=== PATIENT | male | born 1980 | race Caucasian/White ===

== ENCOUNTER 2017-09-28 10:15 | Emergency (ER) | payer SELFPAY ==
[~2017-09-28] VITALS: Ht 182.9 cm; Wt 86.6 kg
[~2017-09-28 10:15] MED LIST: PROM25SU8 PO; Z.0.NO CURRENT MEDS
[2017-09-28 10:18] VITALS: BP 132/88; PULSE 102; RESP 18; TEMP 98.2; O2SAT 94
[2017-09-28] MEDS ORDERED: SODIUM CHLORIDE 0.9% FLUSH 10 ML FLUSH IVF PRN (10:30)
[2017-09-28 10:47] LABS: BILIRUBIN, URINE NEG (NEG); BLOOD, URINE TRACE (NEG); GLUCOSE,URINE NEG (NEG); KETONE, URINE NEG (NEG); NITRITE,URINE NEG (NEG); URINE COLOR YELLOW (YELLW/STRAW); URINE LEUKOCYTE ESTERASE SMALL (NEG)
[2017-09-28 10:51] LABS: RBC, URINE 0-3 /hpf (0-3); SQUAMOUS EPITHELIAL CELL URINE 0-5 /hpf (0-5); WHITE BLOOD CELL CLUMPS FEW
[2017-09-28] MEDS ORDERED: DOXY100C PO (11:18)
--- NOTE | 2017-09-28 11:18 | PD ---
HPI Chief Complaint: Complaint Time Seen by Provider: 10:31 Travel History International Travel<30 days: No Contact w/Intl Traveler<30days: No Traveled to known affect area: No History of Present Illness HPI 37-year-old male here with penile discharge, dysuria, mild testicular pain for the last month. He believes he has an STD. No abdominal pain, flank pain, nausea or vomiting. No fever chills. He reports mild bilateral testicular discomfort/aching over the last month. he reports he had unprotected intercourse approximately 6 weeks ago and developed symptoms 2 weeks after. He has been self-medicating with AZO at home with minimal relief. He reports clear yellow discharge. No testicular swelling. PFSH Past Medical History Asthma: Yes Diminished Hearing: No Respiratory: Yes (ASTHMA) Influenza Vaccination: No Past Surgical History Abdominal Surgery: Yes (HERNIA AT AGE 7) Other Surgery: Yes (right hand surgery, right foot) Social History Alcohol Use: Yes (BEER DAILY 4-6) Tobacco Use: Yes (1/2 PPD) Substance Use: Yes ([employer] OCC) Allergies-Medications (Allergen,Severity, Reaction): Coded Allergies: penicillin G (Unverified Allergy, Severe, SWEATS, VOMITING, FEVER, 09/28/17 ) Sulfa (Sulfonamide Antibiotics) (Unverified Allergy, Unknown, 09/28/17) acetaminophen (Unverified Allergy, Unknown, 09/28/17) Reported Meds & Prescriptions Reported Meds & Active Scripts Active Doxycycline Hyclate 100 Mg Cap 100 Mg PO BID Review of Systems Except as stated in HPI: all other systems reviewed are Neg General / Constitutional: No: Fever Eyes: No: Visual changes HENT: No: Headaches Cardiovascular: No: Chest Pain or Discomfort Respiratory: No: Shortness of Breath Gastrointestinal: No: Abdominal Pain Genitourinary: Positive: Discharge Musculoskeletal: No: Pain Skin: No Rash Physical Exam Narrative GENERAL: Alert and well-appearing 37-year-old male SKIN: Warm and dry. HEAD: Normocephalic. EYES: No injection or drainage. NECK: Supple CARDIOVASCULAR: Regular rate and rhythm RESPIRATORY: Breath sounds equal bilaterally. No accessory muscle use. GASTROINTESTINAL: Abdomen soft, non-tender, nondistended. GENITOURINARY: Circumcised. Testes descended bilaterally without evidence of rotation. Testes are nontender. No swelling. No lesions or erythema. No urethral discharge. MUSCULOSKELETAL: No cyanosis, or edema. BACK: Nontender without obvious deformity. No CVA tenderness. Data Data Last Documented VS Vital Signs Date Time Temp Pulse Resp B/P (MAP) Pulse Ox O2 Delivery O2 Flow Rate FiO2 09/28/17 10:28 16 09/28/17 10:18 98.2 102 132/88 (103) 94 Orders Orders Urinalysis - C+S If Indicated (09/28/17 10:30) Gc And Chlamydia Pcr (09/28/17 10:30) Sodium Chloride 0.9% Flush (Ns Flush) (09/28/17 10:30) Urine Culture (09/28/17 10:34) Azithromycin (Zithromax) (09/28/17 11:30) Ed Discharge Order (09/28/17 11:19) Labs Laboratory Tests Test 09/28/17 10:34 Urine Collection Type CLEAN CATCH Urine Color YELLOW Urine Turbidity CLEAR Urine pH 6.0 Urine Specific [place] LESS/EQUAL 1.005 Urine Protein 30 mg/dL Urine Glucose (UA) NEG mg/dL Urine Ketones NEG mg/dL Urine Occult Blood TRACE Urine Nitrite NEG Urine Bilirubin NEG Urine Urobilinogen 0.2 MG/DL Urine Leukocyte Esterase SMALL Urine RBC 0-3 /hpf Urine WBC 20-24 /hpf Urine WBC Clumps FEW Urine Squamous Epithelial Cells 0-5 /hpf Microscopic Urinalysis Comment CULTURE INDICATED MDM Medical Decision Making Medical Screen Exam Complete: Yes Emergency Medical Condition: Yes Differential Diagnosis Urethritis, STI, epididymitis, orchitis, torsion unlikely Narrative Course 37-year-old male here with penile discharge for 1 month. Concern of STD. Testes are distended bilaterally nontender. UA suggestive of infection. I suspect this is STD. GC chlamydia pending. He will be treated empirically for GC chlamydia. Patient is allergic to penicillin. He is given azithromycin 2 g orally in ED. Discharged home with doxycycline Diagnosis Primary Impression: Penile discharge Referrals: [facility] Additional Instructions: Take the antibiotics as directed. All partners must be treated. Return to emergency department if he develop new or worsening symptoms Scripts Doxycycline Hyclate (Doxycycline Hyclate) 100 Mg Cap 100 MG PO BID for Infection, #20 CAP 0 Refills Prov: Brianna Murillo 09/28/17 Disposition: 01 DISCHARGE HOME Condition: Stable Brianna Murillo September 28, 2017 11:18
[2017-09-28] MEDS ORDERED: AZITHROMYCIN 250 MG TAB PO ONE (11:30)
[2017-09-28 11:33] VITALS: BP 117/75
== END 2017-09-28 11:37 | disposition home or self-care (01) ==
LOC: PHED 10:15
DX: R36.9 Urethral discharge, unspecified (principal); J45.909 Unspecified asthma, uncomplicated; F17.200 Nicotine dependence, unspecified, uncomplicated; F12.90 Cannabis use, unspecified, uncomplicated; Z88.0 Allergy status to penicillin; Z88.2 Allergy status to sulfonamides; Z88.6 Allergy status to analgesic agent
CPT/HCPCS: 81001; 87086; 87185; 87491; 87591; 99283